=== PATIENT | female | born 1960 ===

== ENCOUNTER 2023-03-12 09:45 | Inpatient (IN) | payer OTHER ==
[~2023-03-12] VITALS: Ht 162.6 cm; Wt 68.0 kg
[~2023-03-12 09:45] MED LIST: ADIPEX-P37.5 MG PO; CANDESARTAN CILE8 MG PO; CYMBALTA30 MG PO; JARDIANCE25 MG PO; LYRICA100 MG PO; MINIVELLE1 EACH TOP; PROMETRIUM200 MG PO; RESTORIL15 MG PO; WELLBUTRIN SR100 MG PO
[2023-03-12] MEDS ORDERED: SEROQUEL25 MG (13:20)
[2023-03-12] MEDS ORDERED: ATORVASTATIN CA20 MG (13:20)
[2023-03-16 22:30] LABS: HEMATOCRIT 37.4 % (36.0-45.00); HEMOGLOBIN 12.6 g/dL (12.0-15.00); MEAN CELL VOLUME 89.7 fL (80.00-100.00); MEAN CORPUSCULAR HEMOGLOBIN 30.1 pg (27.00-32.0); MEAN CORPUSCULAR HGB CONC 33.6 g/dl (32.0-36.0); PLATELET COUNT 298 K/uL (150-450); RED BLOOD COUNT 4.17 M/uL (4.00-6.00)
[2023-03-18] MEDS ORDERED: POLY119PG PO (06:54)
[2023-03-18] MEDS ORDERED: GABAPENTIN300 MG PO (06:54)
[2023-03-18] MEDS ORDERED: IBUPROFEN800 MG PO (06:54)
[2023-03-18] MEDS ORDERED: SIMETHICONE125 M1 PO (06:54)
== END 2023-03-18 10:07 | disposition home or self-care (01) | DRG 743 ==
LOC: O/R 03-16 06:00 → OB/GYN 03-16 09:45
PROVIDERS: ADMIT Obstetrics & Gynecology; ATTEND Obstetrics & Gynecology
PROC: 0UJD4ZZ Inspection of Uterus and Cervix, Percutaneous Endoscopic Approach (ICD-10-PCS; 2023-03-16)
PROC: 0UT70ZZ Resection of Bilateral Fallopian Tubes, Open Approach (ICD-10-PCS; 2023-03-16)
PROC: 0UT20ZZ Resection of Bilateral Ovaries, Open Approach (ICD-10-PCS; 2023-03-16)
PROC: 0DNW0ZZ Release Peritoneum, Open Approach (ICD-10-PCS; 2023-03-16)
PROC: 0TNB0ZZ Release Bladder, Open Approach (ICD-10-PCS; 2023-03-16)
PROC: 0UT90ZZ Resection of Uterus, Open Approach (ICD-10-PCS; principal; 2023-03-16 11:30)
PROC: 0UN90ZZ Release Uterus, Open Approach (ICD-10-PCS; 2023-03-18)
DX: N80.03 Adenomyosis of the uterus (principal); N83.311 Acquired atrophy of right ovary; N83.312 Acquired atrophy of left ovary; N72 Inflammatory disease of cervix uteri; Z20.822 Contact with and (suspected) exposure to COVID-19; Z53.31 Laparoscopic surgical procedure converted to open procedure